=== PATIENT | female | born 1990 | race Caucasian/White ===

== ENCOUNTER 2018-03-29 15:29 | Emergency (ER) | payer MEDICAID ==
[~2018-03-29] VITALS: Ht 165.1 cm; Wt 70.3 kg
[~2018-03-29 15:29] MED LIST: [UNRECOGNIZED DRUG - REMARK]
--- NOTE | 2018-03-29 15:30 | NUR ---
PT PRESENTED TO THE ER WITH A C/O LT THUMB LAC S/P CUTTING IT ON A GLASS CANDLESTICK WHILE DOING DIY AT HOME. PT APPEARS ANXIOUS. PT AMBULATED TO ER CH4 WITH A STEADY GAIT. PT IS AWAITING EVAL BY .
--- NOTE | 2018-03-29 15:32 | NUR ---
Jackelyn HEALY PA-C IS AT THE BEDSIDE SPEAKING TO THE PT.
[2018-03-29] MEDS ORDERED: LIDOCAINE 1% INJ 50 ML MDV IJ ONE (15:46)
[2018-03-29] MEDS ORDERED: ONDANSETRON 4 MG TAB.RAPDIS ONE (15:47)
[2018-03-29] MEDS ORDERED: HYDROCODONE/APAP 5/325MG 1 EACH TABLET ONE (15:47)
--- NOTE | 2018-03-29 15:50 | NUR ---
PT'S LT THUMB WAS NUMBED BY VENESSA ARZOLA AND Jackelyn HEALY PA-C. PT TOLERATED PROCEDURE WELL.
[2018-03-29] MEDS ORDERED: LORAZEPAM 1 MG TABLET ONE (15:59)
[2018-03-29] MEDS ORDERED: ONDANSETRON 4 MG TAB.RAPDIS PO ONE (16:00)
[2018-03-29] MEDS ORDERED: LORAZEPAM 1 MG TABLET PO ONE (16:00)
[2018-03-29] MEDS ORDERED: HYDROCODONE/APAP 5/325MG 1 EACH TABLET PO ONE (16:00)
--- NOTE | 2018-03-29 17:20 | NUR ---
Patient discharged to home in stable condition. Written and verbal after care instructions given. Patient verbalizes understanding of instruction. VSS. FINGER CLEANED, NON ADHERENT DRSG, KERLEX WRAP. PT AMBULATED OUT WITH A STEADY GAIT.
[2018-03-29 17:42] VITALS: BP 121/68
== END 2018-03-29 17:42 | disposition home or self-care (01) ==
LOC: ER 15:29
DX: S61.012A Laceration without foreign body of left thumb without damage to nail, initial encounter (principal); J45.909 Unspecified asthma, uncomplicated; W25.XXXA Contact with sharp glass, initial encounter; Y93.89 Activity, other specified; Y92.89 Other specified places as the place of occurrence of the external cause; Y99.8 Other external cause status
CPT/HCPCS: 12001; 73140; 99284; A4606; A6402 ×2; A6403 ×2; J3490; Q0162; Z7610